=== PATIENT | male | born 1960 | race Caucasian/White ===

== ENCOUNTER → 2023-12-16 06:38 | Day surgery (SDC) | payer OTHER, SELFPAY ==
[2023-12-16 13:42] LABS: Glucose - Point of Care 140 mg/dl (70-99)
== END ==
LOC: GI 06:38
PROVIDERS: ATTENDING PHYSICIAN Internal Medicine Gastroenterology
DX: Z12.11 Encounter for screening for malignant neoplasm of colon (principal); D12.2 Benign neoplasm of ascending colon; D12.3 Benign neoplasm of transverse colon; D17.5 Benign lipomatous neoplasm of intra-abdominal organs; K57.30 Diverticulosis of large intestine without perforation or abscess without bleeding; K64.8 Other hemorrhoids; Q43.8 Other specified congenital malformations of intestine; Z86.010 Personal history of colon polyps
CPT/HCPCS: 45380; 88305; 82962; 88342

== ENCOUNTER 2024-02-25 09:20 | Outpatient (RCR) | payer OTHER, SELFPAY | END 2024-02-25 23:59 | disposition home or self-care (01) | LOC: RPT 09:20 | PROVIDERS: ATTENDING PHYSICIAN Internal Medicine | DX: M47.896 Other spondylosis, lumbar region (principal); Z73.6 Limitation of activities due to disability; R26.89 Other abnormalities of gait and mobility | CPT/HCPCS: 97110; 97162 ==